=== PATIENT | female | born 1980 | race Caucasian/White ===

== ENCOUNTER 2016-06-13 00:49 | Emergency (ER) | payer OTHER ==
--- NOTE | ~2016-06-13 | CR63 ---
[facility] A Service of [facility] RADIOLOGY TEXT RESULTS PATIENT: CHACE CONTRERAS LOCATION: SED : [birth year] UNIT #: [id number] AGE: [address]: Anne Coleman MD SEX: F ORDER DR: [id number] [place] [id number] E MR#: [id number] Acc #: [id number] NAME: CHACE CONTRERAS : 1980 SEX: F STUDY DATE/TIME: 06/13/2016 1:14 UNIT: SED ROOM: STUDY DESCRIPTION: CR Chest 2 View Attending Physician: Anne Coleman M.D. Ordering Physician: Physician Non-Staff MEDICAL IMAGING REPORT This report is preliminary unless electronic signature is present. EXAM Chest x-ray, 06/13/2016 HISTORY 36-year-old female in the ED complaining of sore throat, fever and cough beginning earlier in the day. TECHNIQUE PA and lateral upright chest series. FINDINGS Exam shows no active disease in the chest. Heart size and pulmonary vascularity are within normal limits. The lungs appear clear. No visible pulmonary infiltrate or pleural effusion. IMPRESSION No active disease. Dictated by... Rai Pat M.D. THIS IS AN ELECTRONICALLY VERIFIED REPORT Rai Pat M.D. at 06/13/2016 10:06 PM Winter TD: 06/13/2016 13:07 JOB #: [id number] MEDICAL IMAGING REPORT Page 1 of 1
[~2016-06-13 00:49] MED LIST: ESCITALOPRAM OX10 MG PO; GLUCOPHAGE500 MG PO; LISINOPRIL10 MG PO; LOPRESSOR PO; VITAMIN D35000 UNI1 PO
[2016-06-13 01:13] LABS: BASOPHIL# 0.1 X10e3 (0-0.3); BASOPHIL% 0.5 % (0-2.5); DIFF IND NO; EOSINOPHIL# 0.1 X10e3 (0-0.7); EOSINOPHIL% 0.4 % (0.0-7.0); HEMATOCRIT 41.8 % (35.0-45.0); HEMOGLOBIN 13.4 gm/dL (12.0-16.0); LYMPHOCYTE# 1.5 X10e3 (1.0-3.5); LYMPHOCYTE% 7.6 % (17.0-45.0); MEAN CORPUSCULAR HEMOGLOBIN 28.8 PG (28-34); MEAN PLATELET VOLUME 9.7 FL (6.5-11.5); MONOCYTE% 5.2 % (3.0-12.0); NEUTROPHIL# 17.2 X10e3 (1.5-7.1); NEUTROPHIL% 86.3 % (40-75); PLATELET COUNT 238 X10e3 (140-420); RED BLOOD COUNT 4.65 X10e (3.90-5.30); RED CELL DISTRIBUTION WIDTH 13.3 % (11.0-15.5); WHITE BLOOD COUNT 19.9 X10e3 (4.0-10.5)
[2016-06-13 01:14] LABS: INFLUENZA A NEG (NEG); INFLUENZA B NEG (NEG)
[2016-06-13 01:20] LABS: BLOOD UREA NITROGEN 15 mg/dL (9-23); BUN/CREATININE RATIO 18.75; CARBON DIOXIDE 26 mmol/L (22-31); CHLORIDE 100 mmol/L (100-111); CREATININE SERUM 0.8 mg/dL (0.6-1.4); GLOM FILT RATE Estimated ABOVE60 mL/min (>60); GLUCOSE FASTING 142 mg/dL (70-110); POTASSIUM 3.5 mmol/L (3.5-5.1); SODIUM 135 mmol/L (135-145)
[2016-07-10] MEDS ORDERED: METFORMIN HCL500 M1 PO (00:29)
== END 2016-06-13 02:46 | disposition home or self-care (01) ==
LOC: SED 00:49
PROVIDERS: Emergency Medicine
DX: J02.0 Streptococcal pharyngitis (principal); M77.9 Enthesopathy, unspecified; F17.200 Nicotine dependence, unspecified, uncomplicated; Z88.0 Allergy status to penicillin
CPT/HCPCS: 29260; 36415; 71020; 80048; 85025; 86308; 87804; 87880; 96365; 99284

== ENCOUNTER 2016-07-10 00:47 | Emergency (ER) | payer OTHER ==
[~2016-07-10 00:47] MED LIST changes: +METFORMIN HCL500 M1 PO
== END 2016-07-10 00:49 | disposition home or self-care (01) ==
LOC: SED 00:47
DX: M79.671 Pain in right foot (principal); I10 Essential (primary) hypertension; E11.9 Type 2 diabetes mellitus without complications; F17.200 Nicotine dependence, unspecified, uncomplicated
CPT/HCPCS: 99282